=== PATIENT | male | born 1970 | race Asian ===

== ENCOUNTER 2018-03-01 12:47 | Emergency (ER) | payer OTHER ==
[~2018-03-01] VITALS: Ht 165.1 cm; Wt 172.4 kg
[~2018-03-01 12:47] MED LIST: ALLERGY10 MG PO; ASPIRIN325 PO; ATIVAN1 MG PO; ATORVASTATIN CA40 MG PO; BENICAR20 MG PO; COZAAR 50 MG TA50 M1 PO; EFFIENT10 MG PO; FISH OIL 1,001000 M2 PO; HYDROCHLOROTHIA25 M1 PO; MULTIVITAMINS1 EAC7 PO; NOHOMEMEDICATIONS; NORFLEX100 MG PO; PERCOCET 5-3251 EACH PO; PLAVIX 75 MG TA75 M1 PO; TOPROL XL50 MG PO; ULTRA-LIGHT RO1 EACH MC
== END 2018-03-01 13:54 | disposition home or self-care (01) ==
LOC: ER 12:47
DX: I10 Essential (primary) hypertension (principal); E78.00 Pure hypercholesterolemia, unspecified; I25.2 Old myocardial infarction; Z95.1 Presence of aortocoronary bypass graft

== ENCOUNTER 2019-07-18 08:06 | Emergency (ER) | payer OTHER ==
[~2019-07-18] VITALS: Ht 167.6 cm; Wt 172.4 kg
[2019-07-18 08:50] LABS: ABSOLUTE NEUTROPHILS 5.3 thou/uL (1.4-8.2); BASOPHILS 0.9 % (0.0-2.0); EOSINOPHILS 2.3 % (0.0-3.0); HEMATOCRIT 46.7 % (42.0-52.0); HEMOGLOBIN 15.4 gm/dL (14.0-18.0); LYMPHOCYTES 19.8 % (24.0-44.0); MCH 31.7 pg (26.0-34.0); PLATELET COUNT 254 thou/uL (150-400); RBC 4.86 mil/uL (4.50-6.00); RDW 12.9 % (10.5-14.5); WBC 7.6 thou/uL (4.0-11.0)
[2019-07-18 08:53] LABS: URINE BILIRUBIN NEGATIVE (Negative); URINE BLOOD 3+ (Negative); URINE CLARITY CLEAR; URINE COLOR YELLOW; URINE GLUCOSE-RANDOM* NEGATIVE (Negative); URINE KETONES NEGATIVE (Negative); URINE LEUKOCYTES-REFLEX NEGATIVE (Negative); URINE NITRITE-REFLEX NEGATIVE (Negative); URINE PROTEIN (DIPSTICK) TRACE (Negative); URINE SPECIFIC GRAVITY >= 1.030 (1.005-1.035); URINE UROBILINOGEN 0.2 E.U./dl (0.2-1.0)
[2019-07-18 09:03] LABS: BACTERIA-REFLEX 1-9 Few /HPF (None Seen); CASTS None Seen /LPF (None Seen); CRYSTALS None Seen /LPF (None Seen); SQUAMOUS 0-3 Few /LPF (0-3); URINE RBC >20 Many /HPF (0-2); URINE WBC-REFLEX None Seen /HPF (0-5)
[2019-07-18 09:05] LABS: CALCIUM 9.2 mg/dL (8.5-10.1)
[2019-07-18 09:11] LABS: ALBUMIN 3.5 g/dL (3.4-5.0); TOTAL PROTEIN 7.7 g/dL (6.4-8.2)
[2019-07-18] MEDS ORDERED: TORADOL 10 MG T10 MG PO (11:01)
[2019-07-18] MEDS ORDERED: FLOMAX0.4 MG PO (11:01)
[2019-07-18 11:20] VITALS: BP 132/73
== END 2019-07-18 11:20 | disposition home or self-care (01) ==
LOC: ER 08:06
PROVIDERS: Emergency Medicine
DX: N20.1 Calculus of ureter (principal); I10 Essential (primary) hypertension; E78.00 Pure hypercholesterolemia, unspecified; Z95.5 Presence of coronary angioplasty implant and graft

== ENCOUNTER → 2020-11-30 | Outpatient (CLI) | payer OTHER ==
[~2020-11-30] MED LIST changes: +FLOMAX0.4 MG PO; +TORADOL 10 MG T10 MG PO
== END ==
LOC: SJCVCIMAG 07:40
PROVIDERS: ATTEND Internal Medicine Cardiovascular Disease
DX: I49.3 Ventricular premature depolarization (principal); R00.0 Tachycardia, unspecified; I25.10 Atherosclerotic heart disease of native coronary artery without angina pectoris; R06.00 Dyspnea, unspecified; E78.5 Hyperlipidemia, unspecified; E66.9 Obesity, unspecified; I10 Essential (primary) hypertension; I25.2 Old myocardial infarction; Z79.82 Long term (current) use of aspirin; Z79.899 Other long term (current) drug therapy

== ENCOUNTER → 2020-12-09 | Outpatient (CLI) | payer OTHER ==
[~2020-12-09] VITALS: Ht 165.1 cm; Wt 177.0 kg
[~2020-12-09] MED LIST changes: +ATORVASTATIN CA10 MG PO; +CARVEDILOL25 MG PO; +LOSARTAN POTAS100 MG PO
[2020-12-09 08:58] VITALS: BP 147/91
[2020-12-09 09:46] LABS: CALCIUM 8.9 mg/dL (8.5-10.1); POTASSIUM 4.3 mmol/L (3.5-5.1)
--- NOTE | 2020-12-09 12:33 | CATHLAB ---
[facility] [place] [address] INVASIVE PROCEDURE REPORT Name: OMID ZHANG Room #: REG BRIAN Liban#: [id number] Admission: 12/09/20 Attend Phys: Noel Bravo MD Discharge: Date of : 72 Report #: [id number] THIS REPORT FOR: cc: Will Wagner MD, Neal A. MD Park, Jin S. 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 A TRANSRADIAL SLENDER 6F GLIDESHEATH KIT #[id number] sheath was inserted into the Right Radial Artery^. Coronary angiography was performed using coronary diagnostic catheters. The right coronary system was accessed and visualized with a JR4 catheter. The left coronary system was accessed and visualized with a JL3.5 catheter. The left ventricle was accessed and visualized with a PIGTAIL catheter. Closure device was deployed with a Fr VASC BAND L 27CM #[id number]. The patient tolerated the procedure well and there were no [facility] [address] [place] [address] INVASIVE PROCEDURE REPORT Name: OMID ZHANG Room #: REG [facility]#: [id number] Admission: 12/09/20 Attend Phys: Noel Bravo MD Discharge: Date of : 72 Report #: [id number] complications associated with the procedure. Intraoperative Conscious Sedation Sedation start time: 11:23 Case end Time: 11:48 Fentanyl 50 mcg Versed 1 mg Fluoro Time: 2.52 minutes Dose: DAP 38152.60 cGycm2 1063 mGy Contrast Type and Amount: Omnipaque 60 ml Coronary Angiography The patient's coronary anatomy is left dominant. Diagnostic Cath Left Main Left main artery is a large-caliber vessel, patent with no flow-limiting lesions. LAD The LAD is a moderate-sized caliber vessel, traverses the anterior wall and wraps around the apex. There are multiple overlapping stents starting from the mid segment and extending down to the distal segment. Within the lateral half of the overlapping stents, there is a total occlusion. The apical LAD is filled via collateral circulation from the ramus artery. Diagonal 1 This is a small to moderate-sized caliber vessel with a 70% proximal stenosis, recommend medical therapy. Circumflex The left circumflex artery is a moderate to large caliber vessel, dominant. This vessel is patent with no flow-limiting lesions. There are 4 OM vessels and left PDA originating from the left circumflex artery. OM1 There is a moderate stenosis in the proximal segment, 40%. Divides into 2 branches. OM2 This is a small to moderate-sized caliber vessel, patent with no flow-limiting lesions. OM3 OM 3 and OM 4 are moderate-sized caliber vessels, patent with no flow-limiting lesions. L PDA This is a small to moderate-sized caliber vessel, with a moderate stenosis. Right Coronary This is a small, nondominant vessel. Ramus This is a moderate-sized caliber vessel with mild to moderate proximal disease. Left Ventriculography Left Ventriculography was not performed. Ejection Fraction was 40-45% based off patient's Nuclear Cardiac Stress Test. An LVEDP was measured and there is no gradient across the outflow tract. [facility] [address] [place] [address] INVASIVE PROCEDURE REPORT Name: OMID ZHANG Room #: REG CL [facility]#: [id number] Admission: 12/09/20 Attend Phys: Noel Bravo MD Discharge: Date of : 72 Report #: [id number] Hemodynamics The aortic pressure is 132/87 mmHg with a mean of 108 mmHg. The left ventricular pressure is 152/9 mmHg with a mean of mmHg. The left ventricular end diastolic pressure is 24 mmHg. Conclusion 1. There are multiple overlapping stents in the mid to distal LAD segment. There is a total occlusion within the distal LAD stent. The apical LAD is filled via collateral circulation and medical therapy is recommended. 2. The left circumflex artery is a dominant vessel, appears angiographically normal. 3. The ramus artery is patent with mild to moderate disease. 4. The first obtuse marginal artery has a moderate proximal stenosis. 5. There is mild to moderate segmental LV dysfunction. 6. Recommend guideline directed medical therapy and aggressive risk factor management. <ELECTRONICALLY SIGNED> By: Noel Bravo MD 12/09/20 1233 1233 1233 Noel Bravo MD /INF
== END | disposition home or self-care (01) ==
LOC: CATH 06:43
PROVIDERS: ATTEND Internal Medicine Cardiovascular Disease
DX: R94.39 Abnormal result of other cardiovascular function study (principal); I25.10 Atherosclerotic heart disease of native coronary artery without angina pectoris; R06.00 Dyspnea, unspecified; I10 Essential (primary) hypertension; E78.00 Pure hypercholesterolemia, unspecified; E66.9 Obesity, unspecified; I25.2 Old myocardial infarction; Z98.890 Other specified postprocedural states; Z79.899 Other long term (current) drug therapy